=== PATIENT | male | born 1990 | race Caucasian/White ===

== ENCOUNTER 2020-02-10 03:20 | Emergency (ER) | payer SELFPAY ==
[2020-02-10] VITALS (7 sets, daily range): BP systolic 103–130; BP diastolic 63–82; PULSE 84–110; RESP 16–18; TEMP 36.6; O2SAT 96–99
--- NOTE | 2020-02-10 03:45 | CTR_ITS ---
PROCEDURE INFORMATION: Exam: CT Abdomen And Pelvis Without Contrast Exam date and time: 02/10/2020 3:47 AM Age: 29 years old Clinical indication: Abdominal pain; Flank; Right; Prior surgery; Surgery date: 6+ months; Surgery type: Appy; Additional info: Flank/abdominal pain TECHNIQUE: Imaging protocol: Computed tomography of the abdomen and pelvis without contrast. Radiation optimization: All CT scans at this facility use at least one of these dose optimization techniques: automated exposure control; mA and/or kV adjustment per patient size (includes targeted exams where dose is matched to clinical indication); or iterative reconstruction. COMPARISON: No relevant prior studies available. RADIATION DOSE METRICS: Total DLP (mGy-cm): 643.29 FINDINGS: Liver: Normal. No mass. Gallbladder and bile ducts: Normal. No calcified stones. No ductal dilation. Pancreas: Normal. No ductal dilation. Spleen: Normal. No splenomegaly. Adrenal glands: Normal. No mass. Kidneys and ureters: Right renal enlargement with moderate right pelvicaliectasis proximal ureterectasis with obstructing calculus at the proximal right ureter measuring 0.6 by 0.57 by 0.75 cm. Stomach and bowel: Large volume colonic fecal debris. Surgical changes medial to the cecum. Likely prior appendectomy with nonvisualization of the appendix. Rather diffuse fluid-filled small bowel. Appendix: See Stomach and bowel finding. Intraperitoneal space: Unremarkable. No free air. No significant fluid collection. Vasculature: Unremarkable. No abdominal aortic aneurysm. Lymph nodes: Unremarkable. No enlarged lymph nodes. Urinary bladder: Unremarkable as visualized. Reproductive: Unremarkable as visualized. Bones/joints: Unremarkable. No acute fracture. Soft tissues: Unremarkable. CT/CT kidney stone [id number] IMPRESSION: 1. Proximal right ureteral obstructing calculus. 2. Reactive small bowel ileus. Radiation Dose CTDIVOL = (mGy): DLP = 643.29 (mGy-cm)
[2020-02-10] MEDS: morphine 4 mg/mL SDV 1 mL IVP (03:51)
[2020-02-10] MEDS: ondansetron 2 mg/ML SDV 2 mL 4 MG IVP (03:51)
[2020-02-10] MEDS: sodium chloride 0.9% 1,000 ML 999 ML IV (03:52)
[2020-02-10 03:56] LABS: Basophils % 0.5 %; Eosinophils # 0.2 10^3/uL (0.0-0.8); Eosinophils % 2.5 %; Hematocrit 42.9 % (42.0-52.0); Hemoglobin 14.5 g/dL (11.7-16.6); Lymphocytes # 3.2 10^3/uL (0.8-4.8); Lymphocytes % 38.6 %; Mean Corpuscular HGB Conc 33.8 g/dL (30.0-36.0); Mean Corpuscular Hemoglobin 32.4 pg (28.0-34.0); Mean Platelet Volume 9.5 fL (7.4-10.4); Monocytes # 0.8 10^3/uL (0.2-0.9); Neutrophils # 4.02 10^3/uL (1.8-7.7); Neutrophils % 48.3 %; Nucleated Red Blood Cells % 0 %; Platelet Count 321 10^3/cmm (130-400); Red Blood Count 4.47 10^6/uL (4.1-5.3); Red Cell Distribution Width 11.7 % (12.1-15.1); White Blood Count 8.3 10^3/uL (4.0-10.0)
--- NOTE | 2020-02-10 04:07 | W.ED.ABDPA2 ---
HPI - Abdominal Pain General: Chief Complaint: Abdominal Pain Stated Complaint: ab pain, thinks he has kidney stones Time Seen by Provider: 02/10/20 03:26 Source: patient Mode of arrival: ambulatory Limitations: no limitations History of Present Illness: HPI narrative: Zain is a 29-year-old male who comes in with complaint of right flank pain. States his pain is similar 20s had kidney stones in the past. Patient denies any blood in his urine or difficulty urinating. Denies any testicular pain or swelling. He states this pain feels exactly like when he has had kidney stones in the past. He denies any fever, chills, nausea or vomiting. He denies any other complaints or concerns. He is unaware of anything that makes his symptoms better or worse. He otherwise has no complaints. Associated Symptoms: Denies chills, coffee ground emesis, constipation, GI cramping, diarrhea, dysuria, fever(s), heartburn, hematochezia, hematuria, hematemesis, melena, nausea, syncope and vomiting Review of Systems Const: Denies: fever(s), chills, body aches, fatigue, malaise or diaphoresis Eyes: Denies: change in vision, blurry vision, photophobia, eye discomfort, eye discharge, eye redness or yellow eyes ENMT: Denies: throat pain, odynophagia, hoarseness, swelling of lips/tongue, ear or mastoid pain, ear discharge, change in hearing or nasal discharge Card: Denies: chest pain, palpitations, irregular heart rhythm, edema, lightheadedness, syncope, pre-syncope, dyspnea on exertion or orthopnea Resp: Denies: dyspnea, productive cough, non-productive cough, wheezing, hemoptysis or chest congestion GI: Denies: abdominal pain, nausea, vomiting, hematemesis, coffee ground emesis, heartburn, diarrhea, constipation, GI cramping, hematochezia or melena : Reports: flank pain; Denies: dysuria, urinary frequency, urinary urgency or hematuria Musc: Denies: neck pain, back pain, extremity pain, extremity swelling, joint pain, joint swelling, joint redness, joint warmth or joint stiffness Skin/Breast: Denies: rash, pruritus, erythema, skin pain or skin tenderness Neuro: Denies: headache(s), numbness in extremities, weakness in extremities, sensory changes, lack of coordination, difficulty walking, dizziness, vertigo, confusion, Slurred speech present or seizure-like activity Santino/Lymph: Denies: easy bruising, easy bleeding, petechiae, purpura or enlarged lymph nodes All/Imm: Denies: urticaria, throat swelling, tongue swelling, facial swelling or acute wheezing PFSH ED PFSH: Medical History Kidney stones Surgical History History of appendectomy Physical Exam Const: COMMON NORMALS: no acute distress, patient oriented x3, no limitations and alert GENERAL APPEARANCE: cooperative HENMT: COMMON NORMALS: normocephalic, atraumatic, external ears normal, EAC's normal and Normal external nose present HEAD & SCALP: normal to inspection, normocephalic and atraumatic FACE & SINUS: normal facial exam and face symmetric NOSE: Normal external nose present and Normal nares present EXTERNAL EAR: Yes external ears normal EXTERNAL AUDITORY CANAL: EAC's normal MOUTH: Normal oral and palatal mucosa present, lip normal and tongue normal Eye: COMMON NORMALS: Equal, round and reactive pupils present and conjunctivae normal GENERAL EYE: appearance normal, both eyes and all related structures ALIGNMENT: Yes alignment normal PERIORBITAL: periorbital findings normal EYELID: eyelids normal CONJUNCTIVA: Yes conjunctivae normal SCLERA: sclerae normal PUPIL: Yes Equal, round and reactive pupils present Neck/C-Spine: COMMON NORMALS: full ROM, no lymphadenopathy, supple, no meningeal signs and no JVD GENERAL: Yes normal visual inspection and Yes trachea midline Chest: COMMONS NORMALS: normal inspection of the chest and normal palpation of entire chest wall Resp: COMMON NORMALS: normal respiratory effort, No retractions, No use of accessory muscles and clear to auscultation bilaterally EFFORT & INSPECTION: Yes able to speak in complete sentences and Yes symmetric chest movement AUSCULTATION: clear to auscultation bilaterally, no crackles, no rales, no rhonchi and no wheezes Cardio: COMMON NORMALS: no JVD, regular rate, regular rhythm, S1 normal heart sound present and S2 normal heart sound present RATE: regular rate RHYTHM: regular rhythm HEART SOUNDS: S1 normal heart sound present, S2 normal heart sound present, no click, no gallops, no murmurs and no rubs GI: COMMON NORMALS: Soft to palpation and No hepatosplenomegaly present PALPATION: Yes Soft to palpation, No Tenderness to palpation present (GI), No Guarding due to palpation present (GI), No Rigid due to palpation, Yes No hepatosplenomegaly present, No Hernia present, No Palpable mass present and No Pulsatile mass present : COMMON NORMALS: Yes no CVA tenderness BLADDER/KIDNEY EXAM: Yes no CVA tenderness Back/Pelvis: COMMON NORMALS: no CVA tenderness, thoracic and lumbar spine normal to inspection, no thoracic nor lumbar tenderness and thoraco-lumbar ROM normal Extremity: COMMON NORMALS: normal to inspection, full ROM, capillary refill normal, no joint enlargement, no clubbing, cyanosis or edema and no calf tenderness Neuro: COMMON NORMALS: patient oriented x3, CN's II-XII intact bilaterally, moves all extremities, no focal motor deficits and no sensory deficits noted SENSORIUM/ORIENTATION: Yes alert MENINGEAL SIGNS: Yes no meningeal signs SPEECH: speech normal Psych: COMMON NORMALS: mental status grossly normal, Normal thought process present, cooperative, normal affect, speech normal and activity/motor behavior normal SPEECH: Yes normal speech THOUGHT PROCESS: Normal thought process present Skin: COMMON NORMALS: no rashes or lesions noted, turgor normal, no jaundice, no petechiae and no mottling GENERAL SKIN EXAM: no rashes or lesions noted and turgor normal Course Vital Signs: Vital signs: Vital Signs Temperature 97.8 F 02/10/20 03:21 Pulse Rate 94 02/10/20 05:09 Respiratory Rate 18 02/10/20 05:22 Blood Pressure 110/64 02/10/20 05:09 Pulse Oximetry 97 02/10/20 05:22 MDM - Abdominal Pain MDM Narrative: Medical decision making narrative: Mr. Hudson is a nice 29-year-old male who comes in with right flank pain. He has history of kidney stones and has another kidney stone. Stone is quite large but despite my insistence and request the patient refuses to be admitted. He wants to go home. I will send him home with pain medicine, Flomax, nausea medicine and a prophylactic antibiotic. He understands he needs to follow-up with Dr. Peter as soon as possible. He otherwise denies any complaints or concerns and wants to be discharged. Patient has been warned but is also been welcomed to return. Differential Diagnosis: Differential diagnosis abdominal pain: Likely abdominal pain, calculus of kidney, constipation, endometriosis, gastroenteritis, pancreatitis and small bowel obstruction Lab Data: Attestation: I reviewed the patient's lab results. Labs: Lab Results 02/10/20 02/10/20 02/10/20 Range/Units 03:30 03:30 04:50 WBC 8.3 (4.0-10.0) 10^3/ uL RBC 4.47 (4.1-5.3) 10^6/u L Hgb 14.5 (11.7-16.6) g/dL Hct 42.9 (42.0-52.0) % MCV 96.0 H (80-94) fL MCH 32.4 (28.0-34.0) pg MCHC 33.8 (30.0-36.0) g/dL RDW 11.7 L (12.1-15.1) % Plt Count 321 (130-400) 10^3/c mm MPV 9.5 (7.4-10.4) fL Neut % (Auto) 48.3 % Lymph % (Auto) 38.6 % [place] % (Auto) 10.0 % Eos % (Auto) 2.5 % Baso % (Auto) 0.5 % Neut # (Auto) 4.02 (1.8-7.7) 10^3/u L Lymph # (Auto) 3.2 (0.8-4.8) 10^3/u L [place] # (Auto) 0.8 (0.2-0.9) 10^3/u L Eos # (Auto) 0.2 (0.0-0.8) 10^3/u L Baso # (Auto) 0.0 (0.0-0.1) 10^3/u L Nucleated RBC % (a uto) 0 % Nucleated RBCs # 0.0 /100WBC Sodium 138 (136-145) mmol/L Potassium 4.2 (3.5-5.1) mmol/L Chloride 101 (98-107) mmol/L Carbon Dioxide 26 (22-29) mmol/L Anion Gap 15.2 (5-19) BUN 14 (6-20) mg/dL Creatinine 1.1 (0.7-1.2) mg/dL GFR Calculation 78.6 L (90-130) mL/min Glucose 111 (65-115) mg/dL Calculated Osmolal ity 287 (285-295) mOsm/k g Calcium 9.7 (8.5-10.5) mg/dL Total Bilirubin 0.2 (0.15-1.2) mg/dL AST 21 (0-40) U/L ALT 26 (0-41) U/L Alkaline Phosphata se 96 (40-130) IU/L Total Protein 7.3 (6.6-8.7) g/dL Albumin 4.1 (3.5-5.2) g/dL Globulin 3.2 (1.3-4.6) g/dL Lipase 18 (13-60) U/L Urine Color Yellow (Yellow) Urine Appearance Cloudy (CLEAR) Urine pH 8.0 H (5-7) Ur Specific Gravit y 1.015 (1.005-1.030) Urine Protein Neg (Negative) Urine Glucose (UA) Norm (Normal) Urine Ketones Negative (Negative) Urine Blood 3+ H (Negative) Urine Nitrate Negative (Negative) Urine Bilirubin Neg (Negative) Urine Urobilinogen Norm (Negative) mg/dL Ur Leukocyte Cassia ase Negative (Negative) Urine RBC 25-40 H (0-2) /hpf Urine WBC 0-4 H (0-5) /hpf Ur Squamous Epith Cells None (0-5) /hpf Amorphous Sediment Amorphous urates /hpf Urine Bacteria 2+ H (NONE) /hpf Urine Mucus Trace /hpf Imaging Data ^: CT Abd/Pel: Radiologist's impression: [address] [address] [address] Scan Report Signed Patient: Zain Hudson Unit #: [id number] : 1990 Age/Sex: 29 / M ADM Date: 02/10/20 Loc: ER Room/Bed: Attending Dr: Ordering Provider/Ordering MD: Yazmin Meeks DO Date of Service: 02/10/20 Procedure(s): CT kidney stone 91843 Accession Number(s): [id number] Report Number: [id number] PROCEDURE INFORMATION: Exam: CT Abdomen And Pelvis Without Contrast Exam date and time: 02/10/2020 3:47 AM Age: 29 years old Clinical indication: Abdominal pain; Flank; Right; Prior surgery; Surgery date: 6+ months; Surgery type: Appy; Additional info: Flank/abdominal pain TECHNIQUE: Imaging protocol: Computed tomography of the abdomen and pelvis without contrast. Radiation optimization: All CT scans at this facility use at least one of these dose optimization techniques: automated exposure control; mA and/or kV adjustment per patient size (includes targeted exams where dose is matched to clinical indication); or iterative reconstruction. COMPARISON: No relevant prior studies available. RADIATION DOSE METRICS: Total DLP (mGy-cm): 643.29 FINDINGS: Liver: Normal. No mass. Gallbladder and bile ducts: Normal. No calcified stones. No ductal dilation. Pancreas: Normal. No ductal dilation. Spleen: Normal. No splenomegaly. Adrenal glands: Normal. No mass. Kidneys and ureters: Right renal enlargement with moderate right pelvicaliectasis proximal ureterectasis with obstructing calculus at the proximal right ureter measuring 0.6 by 0.57 by 0.75 cm. Stomach and bowel: Large volume colonic fecal debris. Surgical changes medial to the cecum. Likely prior appendectomy with nonvisualization of the appendix. Rather diffuse fluid-filled small bowel. Appendix: See Stomach and bowel finding. Intraperitoneal space: Unremarkable. No free air. No significant fluid collection. Vasculature: Unremarkable. No abdominal aortic aneurysm. Lymph nodes: Unremarkable. No enlarged lymph nodes. Urinary bladder: Unremarkable as visualized. Reproductive: Unremarkable as visualized. Bones/joints: Unremarkable. No acute fracture. Soft tissues: Unremarkable. CT/CT kidney stone [id number] IMPRESSION: 1. Proximal right ureteral obstructing calculus. 2. Reactive small bowel ileus. Radiation Dose CTDIVOL = (mGy): DLP = 643.29 (mGy-cm) Dictated By: Barbra Helm DO Signed By: Barbra Helm DO Signed Date/Time: 02/10/20444 DD/ 3 Discharge Plan Discharge Patient Disposition: Home Clinical Impression: Kidney stones Condition: Stable Prescriptions: [place] 5-325 mg tablet 1 tab PO Q6H PRN (Reason: pain) 5 Days Qty: 20 RF: 0 Zofran 4 mg tablet 4 mg PO Q6H PRN (Reason: nausea and vomiting) Qty: 20 RF: 0 cefdinir 300 mg capsule 300 mg PO Q12H 10 Days Qty: 20 RF: 0 Flomax 0.4 mg capsule 0.4 mg PO DAILY Qty: 30 RF: 0 Discharge Orders: Discharge ED (Routine); Ordered 02/10/20 Ordered By: Yazmin Meeks Referrals: Debbie Palacios MD [Primary Care Provider] - Massimo Peter MD [Physician] - 1-3 days Discharge Diet: Advance as tolerated Discharge Activity: Increase activity as tolerated Patient Instructions: Renal Colic (ED) Activity Restrictions/Additional Instructions: Please return to the ER immediately for any of the signs or symptoms listed on your discharge instruction sheets, worsening/changing of your symptoms, you are not getting better as quickly as expected, or for ANY other cause or concerns. Strain your urine and take the medicines as I have prescribed them. Return to the ER for fever, uncontrolled pain, vomiting, or for any other cause for concern. You have been offered further evaluation and care here but have declined. If your symptoms worsen or you simply change your mind please return to the ER immediately for recheck. Be certain to call for an appointment to be seen by Dr. Peter soon as possible. Stand Alone Forms: Work/School Release Coding Level of Care Code ED Bin Tripper Operator for Caitlin Fwd Exam Comprehensive
[2020-02-10 04:25] LABS: Alanine Aminotransferase 26 U/L (0-41); Albumin Level 4.1 g/dL (3.5-5.2); Alkaline Phosphatase 96 IU/L (40-130); Anion Gap 15.2 (5-19); Aspartate Amino Transferase 21 U/L (0-40); Blood Urea Nitrogen 14 mg/dL (6-20); Calcium 9.7 mg/dL (8.5-10.5); Carbon Dioxide 26 mmol/L (22-29); Chloride 101 mmol/L (98-107); Globulin 3.2 g/dL (1.3-4.6); Glomerular Filtration Rate 78.6 mL/min (90-130); Glucose 111 mg/dL (65-115); Lipase 18 U/L (13-60); Osmolality Calculated 287 mOsm/kg (285-295); Potassium 4.2 mmol/L (3.5-5.1); Sodium 138 mmol/L (136-145); Total Bilirubin 0.2 mg/dL (0.15-1.2); Total Protein 7.3 g/dL (6.6-8.7)
[2020-02-10 05:21] LABS: Add Urine Microscopic? YES; Bilirubin Urine Neg (Negative); Blood Urine 3+ (Negative); Glucose Urine UA Norm (Normal); Ketones Urine Negative (Negative); Leukocyte Esterase Urine Negative (Negative); Nitrate Urine Negative (Negative); Protein Urine Neg (Negative); Specific Gravity, Urine 1.015 (1.005-1.030); Urine Appearance Cloudy (CLEAR); Urine Color Yellow (Yellow); Urobilinogen Urine Norm (Negative)
[2020-02-10 05:22] LABS: Add Urine Culture? Yes; Amorphous Sediment Urine AMORPHOUS URATES /hpf; Bacteria Urine 2+ /hpf; Mucus Urine TRACE /hpf; RBC Urine 25-40 /hpf (0-2); WBC Urine 0-4 /hpf (0-5)
[2020-02-10] MEDS: HYDROmorphone 1 mg/mL INJ 1 mL 0.5 MG IVP (05:22)
== END 2020-02-10 05:52 | disposition home or self-care (01) ==
PROVIDERS: Emergency Provider Emergency Medicine; PCP Family Medicine
DX: N20.0 Calculus of kidney (principal); Z87.442 Personal history of urinary calculi
CPT/HCPCS: 12345; 74176; 80053; 81001; 83690; 85025; 87086; 96361; 96374; 96375; 99283; J1170; J2270; J2405; J7030

== ENCOUNTER 2020-02-13 18:04 | Emergency (ER) | payer SELFPAY ==
[2020-02-13] VITALS (8 sets, daily range): BP systolic 104–132; BP diastolic 53–80; PULSE 64–102; RESP 15–28; TEMP 36.7; O2SAT 94–99; BMI 22.9
--- NOTE | 2020-02-13 18:24 | ED_ITS ---
HPI - Male Genitourinary General: Chief complaint: Urogenital-Male Stated complaint: suspects kidney stone Time Seen by Provider: 02/13/20 18:22 Source: patient Mode of arrival: ambulatory Limitations: no limitations History of Present Illness: HPI Narrative: Zain is a nice 29-year-old male who returns with right-sided flank pain due to a kidney stone. Patient was seen and evaluated by me on February 09 and diagnosed with a large stone at that time. Please see that encounter for details of that visit. He had moderate right hydroureteral nephrosis at that time but he would not stay despite my trying to convince him that he would not do well trying to pass this at home on his own. Zain is in a great deal of pain at this time. relates that he was fine when he left at his previous visit and has been fine with his pain until tonight. His pain returned abruptly this evening. There is been no reported fevers, vomiting or ill type symptoms until this evening. Patient denies any other complaints or concerns. Patient also states that he did not fill any of the medications prescribed to him previously. Associated symptoms: Deny dysuria, hematuria, nausea or vomiting Review of Systems Const: Denies: fever(s), chills, body aches, fatigue, malaise or diaphoresis Eyes: Denies: change in vision, blurry vision, photophobia, eye discomfort, eye discharge, eye redness or yellow eyes ENMT: Denies: throat pain, odynophagia, hoarseness, swelling of lips/tongue, ear or mastoid pain, ear discharge, change in hearing or nasal discharge Card: Denies: chest pain, palpitations, irregular heart rhythm, edema, lightheadedness, syncope, pre-syncope, dyspnea on exertion or orthopnea Resp: Denies: dyspnea, productive cough, non-productive cough, wheezing, hemoptysis or chest congestion GI: Denies: abdominal pain, nausea, vomiting, hematemesis, coffee ground emesis, heartburn, diarrhea, constipation, GI cramping, hematochezia or melena : Reports: flank pain; Denies: dysuria, urinary frequency, urinary urgency or hematuria Musc: Denies: neck pain, back pain, extremity pain, extremity swelling, joint pain, joint swelling, joint redness, joint warmth or joint stiffness Skin/Breast: Denies: rash, pruritus, erythema, skin pain or skin tenderness Neuro: Denies: headache(s), numbness in extremities, weakness in extremities, sensory changes, lack of coordination, difficulty walking, dizziness, vertigo, confusion, Slurred speech present or seizure-like activity Santino/Lymph: Denies: easy bruising, easy bleeding, petechiae, purpura or enlarged lymph nodes All/Imm: Denies: urticaria, throat swelling, tongue swelling, facial swelling or acute wheezing PFSH ED PFSH: Medical History Kidney stones Surgical History History of appendectomy Physical Exam Const: COMMON NORMALS: no acute distress, patient oriented x3, no limitations and alert GENERAL APPEARANCE: cooperative HENMT: COMMON NORMALS: normocephalic, atraumatic, external ears normal, EAC's normal and Normal external nose present HEAD & SCALP: normal to inspection, normocephalic and atraumatic FACE & SINUS: normal facial exam and face symme tric NOSE: Normal external nose present and Normal nares present EXTERNAL EAR: Yes external ears normal EXTERNAL AUDITORY CANAL: EAC's normal MOUTH: Normal oral and palatal mucosa present, lip normal and tongue normal Eye: COMMON NORMALS: Equal, round and reactive pupils present and conjunctivae normal GENERAL EYE: appearance normal, both eyes and all related structures ALIGNMENT: Yes alignment normal PERIORBITAL: periorbital findings normal EYELID: eyelids normal CONJUNCTIVA: Yes conjunctivae normal SCLERA: sclerae normal PUPIL: Yes Equal, round and reactive pupils present Neck/C-Spine: COMMON NORMALS: full ROM, no lymphadenopathy, supple, no meningeal signs and no JVD GENERAL: Yes normal visual inspection and Yes trachea midline Chest: COMMONS NORMALS: normal inspection of the chest and normal palpation of entire chest wall Resp: COMMON NORMALS: normal respiratory effort, No retractions, No use of acc essory muscles and clear to auscultation bilaterally EFFORT & INSPECTION: Yes able to speak in complete sentences and Yes symmetric chest movement AUSCULTATION: clear to auscultation bilaterally, no crackles, no rales, no rhonchi and no wheezes Cardio: COMMON NORMALS: no JVD, regular rate, regular rhythm, S1 normal heart sound present and S2 normal heart sound present RATE: regular rate RHYTHM: regular rhythm HEART SOUNDS: S1 normal heart sound present, S2 normal heart sound present, no click, no gallops, no murmurs and no rubs GI: COMMON NORMALS: Soft to palpation and No hepatosplenomegaly present PALPATION: Yes Soft to palpation, No Tenderness to palpation present (GI), No Guarding due to palpation present (GI), No Rigid due to palpation, Yes No hepa tosplenomegaly present, No Hernia present, No Palpable mass present and No Pulsatile mass present : BLADDER/KIDNEY EXAM: Yes CVA tenderness on the right Back/Pelvis: COMMON NORMALS: thoracic and lumbar spine normal to inspection, no thoracic nor lumbar tenderness and thoraco-lumbar ROM normal Extremity: COMMON NORMALS: normal to inspection, full ROM, capillary refill normal, no joint enlargement, no clubbing, cyanosis or edema and no calf tenderness Neuro: COMMON NORMALS: patient oriented x3, CN's II-XII intact bilaterally, moves all extremities, no focal motor deficits and no sensory deficits noted SENSORIUM/ORIENTATION: Yes alert MENINGEAL SIGNS: Yes no meningeal signs SPEECH: speech normal Psych: COMMON NORMALS: mental status grossly normal, Normal thought process present, cooperative, normal affect, speech normal and activity/motor behavior normal SPEECH: Yes normal speech THOUGHT PROCESS: Normal thought process present Skin: COMMON NORMALS: no rashes or lesions noted, turgor normal, no jaundice, no petechiae and no mottling GENERAL SKIN EXAM: no rashes or lesions noted and turgor normal Course Vital Signs: Vital signs: Vital Signs Temperature 98.0 F 02/13/20 18:12 Pulse Rate 80 02/14/20 00:22 Respiratory Rate 17 02/14/20 00:22 Blood Pressure 112/66 02/14/20 00:22 Pulse Oximetry 98 02/14/20 00:22 MDM - Male MDM Narrative: Medical decision making narrative: The case was reviewed in its entirety with Dr. Peter. The patient never filled his antibiotics or any of his medicines after his last ER visit. He has truly not failed outpatient therapy as he is been noncompliant. Dr. Peter thinks the patient can likely start these medicines and he can see the patient on Sunday. I reviewed this plan with the patient and he is in agreement. Patient's pain is controlled at this time. He understands instructions are given to him. Further care be dictated with Dr. Peter. Patient did understand he can return here at any time if his symptoms change or worsen. Patient had no fever or sign of infection here, he was not vomiting so he should be more than able to tolerate his symptoms at home. I did review with him and his and they state they do have the money to purchase his medications. He will be discharged with medications for pain and nausea to help get him through tonight and he was given his first dose of Flomax and antibiotic here. Lab Data: Attestation: I reviewed the patient's lab results. Labs: Lab Results 02/13/20 02/13/20 02/13/20 Range/Units 18:40 18:40 18:55 WBC 13.0 H (4.0-10.0) 10^3/ uL RBC 4.50 (4.1-5.3) 10^6/u L Hgb 14.3 (11.7-16.6) g/dL Hct 42.4 (42.0-52.0) % MCV 94.2 H (80-94) fL MCH 31.8 (28.0-34.0) pg MCHC 33.7 (30.0-36.0) g/dL RDW 11.6 L (12.1-15.1) % Plt Count 305 (130-400) 10^3/c mm MPV 9.9 (7.4-10.4) fL Neut % (Auto) 62.6 % Lymph % (Auto) 27.0 % [place] % (Auto) 8.3 % Eos % (Auto) 1.5 % Baso % (Auto) 0.4 % Neut # (Auto) 8.11 H (1.8-7.7) 10^3/u L Lymph # (Auto) 3.5 (0.8-4.8) 10^3/u L [place] # (Auto) 1.1 H (0.2-0.9) 10^3/u L Eos # (Auto) 0.2 (0.0-0.8) 10^3/u L Baso # (Auto) 0.1 (0.0-0.1) 10^3/u L Nucleated RBC % (a uto) 0 % Nucleated RBCs # 0.0 /100WBC Sodium 136 (136-145) mmol/L Potassium 3.8 (3.5-5.1) mmol/L Chloride 105 (98-107) mmol/L Carbon Dioxide 22 (22-29) mmol/L Anion Gap 12.8 (5-19) BUN 16 (6-20) mg/dL Creatinine 1.2 (0.7-1.2) mg/dL GFR Calculation 71.1 L (90-130) mL/min Glucose 111 (65-115) mg/dL Calculated Osmolal ity 284 L (285-295) mOsm/k g Lactic Acid 1.2 (0.5-2.2) mmol/L Calcium 9.5 (8.5-10.5) mg/dL Total Bilirubin 0.2 (0.15-1.2) mg/dL AST 21 (0-40) U/L ALT 22 (0-41) U/L Alkaline Phosphata se 93 (40-130) IU/L Total Protein 7.1 (6.6-8.7) g/dL Albumin 3.8 (3.5-5.2) g/dL Globulin 3.3 (1.3-4.6) g/dL Lipase 20 (13-60) U/L Urine Color (Yellow) Urine Appearance (CLEAR) Urine pH (5-7) Ur Specific Gravit y (1.005-1.030) Urine Protein (Negative) Urine Glucose (UA) (Normal) Urine Ketones (Negative) Urine Blood (Negative) Urine Nitrate (Negative) Urine Bilirubin (Negative) Urine Urobilinogen (Negative) mg/dL Ur Leukocyte Cassia ase (Negative) Urine RBC (0-2) /hpf Urine WBC (0-5) /hpf Ur Squamous Epith Cells (0-5) /hpf Amorphous Sediment /hpf Urine Bacteria (NONE) /hpf 02/13/20 Range/Units 22:04 WBC (4.0-10.0) 10^3/ uL RBC (4.1-5.3) 10^6/u L Hgb (11.7-16.6) g/dL Hct (42.0-52.0) % MCV (80-94) fL MCH (28.0-34.0) pg MCHC (30.0-36.0) g/dL RDW (12.1-15.1) % Plt Count (130-400) 10^3/c mm MPV (7.4-10.4) fL Neut % (Auto) % Lymph % (Auto) % [place] % (Auto) % Eos % (Auto) % Baso % (Auto) % Neut # (Auto) (1.8-7.7) 10^3/u L Lymph # (Auto) (0.8-4.8) 10^3/u L [place] # (Auto) (0.2-0.9) 10^3/u L Eos # (Auto) (0.0-0.8) 10^3/u L Baso # (Auto) (0.0-0.1) 10^3/u L Nucleated RBC % (a uto) % Nucleated RBCs # /100WBC Sodium (136-145) mmol/L Potassium (3.5-5.1) mmol/L Chloride (98-107) mmol/L Carbon Dioxide (22-29) mmol/L Anion Gap (5-19) BUN (6-20) mg/dL Creatinine (0.7-1.2) mg/dL GFR Calculation (90-130) mL/min Glucose (65-115) mg/dL Calculated Osmolal ity (285-295) mOsm/k g Lactic Acid (0.5-2.2) mmol/L Calcium (8.5-10.5) mg/dL Total Bilirubin (0.15-1.2) mg/dL AST (0-40) U/L ALT (0-41) U/L Alkaline Phosphata se (40-130) IU/L Total Protein (6.6-8.7) g/dL Albumin (3.5-5.2) g/dL Globulin (1.3-4.6) g/dL Lipase (13-60) U/L Urine Color Yellow (Yellow) Urine Appearance Sl cloudy A (CLEAR) Urine pH 7 (5-7) Ur Specific Gravit y 1.010 (1.005-1.030) Urine Protein Neg (Negative) Urine Glucose (UA) Norm (Normal) Urine Ketones Negative (Negative) Urine Blood Neg (Negative) Urine Nitrate Negative (Negative) Urine Bilirubin Neg (Negative) Urine Urobilinogen Norm (Negative) mg/dL Ur Leukocyte Cassia ase Negative (Negative) Urine RBC 0-4 H (0-2) /hpf Urine WBC 0-4 H (0-5) /hpf Ur Squamous Epith Cells 0-4 H (0-5) /hpf Amorphous Sediment 3+ /hpf Urine Bacteria Trace (NONE) /hpf Discharge Plan Discharge Patient Disposition: Home Clinical Impression: Kidney stones Condition: Stable Prescriptions: No Action hydrocodone-acetaminophen [Ronceverte] 5-325 mg tablet 1 tab PO Q6H PRN (Reason: pain) 5 Days Qty: 20 RF: 0 ondansetron HCl [Zofran] 4 mg tablet 4 mg PO Q6H PRN (Reason: nausea and vomiting) Qty: 20 RF: 0 cefdinir 300 mg capsule 300 mg PO Q12H 10 Days Qty: 20 RF: 0 tamsulosin [Flomax] 0.4 mg capsule 0.4 mg PO DAILY Qty: 30 RF: 0 Discharge Orders: Discharge ED (Routine); Ordered 02/13/20 Ordered By: Yazmin Meeks Referrals: Debbie Palacios MD [Primary Care Provider] - Massimo Peter MD [Physician] - 1-3 days (Do not eat or drink anything but clear fluids after Sunday night at midnight and call for an appointment to be seen by Dr. Peter first thing Sunday.) Discharge Diet: Advance as tolerated Discharge Activity: Increase activity as tolerated Patient Instructions: Renal Colic (ED) Activity Restrictions/Additional Instructions: Please return to the ER immediately for any of the signs or symptoms listed on your discharge instruction sheets, worsening/changing of your symptoms, you are not getting better as quickly as expected, or for ANY other cause or concerns. Be certain to call for an appointment to be seen by Dr. Peter on Sunday and do not eat or drink anything other than clear fluids after midnight Sunday night. Return to the ER for uncontrolled pain, fever, vomiting, or for any other cause for concern. Coding Level of Care Code ED Space [employer] Operations Craftsman for Chg Fwd Exam Comprehensive
[2020-02-13] MEDS: ondansetron 2 mg/ML SDV 2 mL 4 MG IVP (18:32)
[2020-02-13] MEDS: HYDROmorphone 1 mg/mL INJ 1 mL IVP ×2 (18:32→18:55)
[2020-02-13] MEDS: sodium chloride 0.9% 1,000 ML 100 ML IV ×2 (18:41→21:19)
[2020-02-13 18:47] LABS: Basophils # 0.1 10^3/uL (0.0-0.1); Basophils % 0.4 %; Eosinophils # 0.2 10^3/uL (0.0-0.8); Eosinophils % 1.5 %; Hematocrit 42.4 % (42.0-52.0); Hemoglobin 14.3 g/dL (11.7-16.6); Lymphocytes # 3.5 10^3/uL (0.8-4.8); Mean Corpuscular HGB Conc 33.7 g/dL (30.0-36.0); Mean Corpuscular Hemoglobin 31.8 pg (28.0-34.0); Mean Corpuscular Volume 94.2 fL (80-94); Mean Platelet Volume 9.9 fL (7.4-10.4); Monocytes # 1.1 10^3/uL (0.2-0.9); Monocytes % 8.3 %; Neutrophils # 8.11 10^3/uL (1.8-7.7); Neutrophils % 62.6 %; Nucleated Red Blood Cells % 0 %; Platelet Count 305 10^3/cmm (130-400); Red Cell Distribution Width 11.6 % (12.1-15.1)
[2020-02-13 19:09] LABS: Alanine Aminotransferase 22 U/L (0-41); Albumin Level 3.8 g/dL (3.5-5.2); Alkaline Phosphatase 93 IU/L (40-130); Anion Gap 12.8 (5-19); Aspartate Amino Transferase 21 U/L (0-40); Blood Urea Nitrogen 16 mg/dL (6-20); Calcium 9.5 mg/dL (8.5-10.5); Carbon Dioxide 22 mmol/L (22-29); Chloride 105 mmol/L (98-107); Globulin 3.3 g/dL (1.3-4.6); Glomerular Filtration Rate 71.1 mL/min (90-130); Glucose 111 mg/dL (65-115); Lipase 20 U/L (13-60); Osmolality Calculated 284 mOsm/kg (285-295); Potassium 3.8 mmol/L (3.5-5.1); Sodium 136 mmol/L (136-145); Total Bilirubin 0.2 mg/dL (0.15-1.2); Total Protein 7.1 g/dL (6.6-8.7)
[2020-02-13 19:13] LABS: Lactic Sepsis W/Reflex 1.2 mmol/L (0.5-2.2)
[2020-02-13] MEDS: sodium chloride 0.9% 1,000 ML 999 ML IV (19:35)
--- NOTE | 2020-02-13 21:24 | PC.NURSE ---
2100 offered to cath pt after second liter to get urine, pt refused at the time. pt has attempted to urinate x3 with no success, erp notified.
[2020-02-13 23:01] LABS: Bilirubin Urine Neg (Negative); Blood Urine Neg (Negative); Glucose Urine UA Norm (Normal); Ketones Urine Negative (Negative); Leukocyte Esterase Urine Negative (Negative); Nitrate Urine Negative (Negative); Protein Urine Neg (Negative); Urine Color Yellow (Yellow); Urobilinogen Urine Norm (Negative); pH Urine 7 (5-7)
[2020-02-13 23:02] LABS: Add Urine Culture? No; Amorphous Sediment Urine 3+ /hpf; Bacteria Urine TRACE /hpf; RBC Urine 0-4 /hpf (0-2); Squamous Epithelial Cell Urine 0-4 /hpf (0-5); WBC Urine 0-4 /hpf (0-5)
--- NOTE | 2020-02-13 23:15 | XRR_ITS ---
PROCEDURE INFORMATION: Exam: XR Abdomen, 1 View Exam date and time: 02/13/2020 11:18 PM Age: 29 years old Clinical indication: Condition or disease; Kidney or ureter condition; Calculus (stone) in ureter; Prior surgery; Surgery date: 6+ months; Surgery type: Appendectomy; Patient HX: HX of large kidney stone. Had CT here 02/09. C/O severe pain again tonight. Right flank TECHNIQUE: Imaging protocol: XR of the abdomen. Views: Frontal supine view of the abdomen. 1 View. COMPARISON: CT kidney stone [id number] 02/10/2020 3:53 AM FINDINGS: Gastrointestinal tract: Normal. No bowel dilation. Bones/joints: There is a 3 x 5 mm calcifications seen in the right flank at the L3-L4 level compatible with a right ureteral calculus. A calcification was seen on a CT examination dated 02/10/2020 showing little change in position. XR/XR KUB portable [id number] IMPRESSION: Right ureteral calculus essentially unchanged in position compared with a CT examination dated 02/10/2020.
[2020-02-14] MEDS: tamsulosin 0.4 mg Capsule PO (00:14)
[2020-02-14] MEDS: cefdinir 300 MG CAPSULE PO (00:14)
[2020-02-14] MEDS: ondansetron 4 MG Tablet 8 MG PO (00:20)
[2020-02-14] MEDS: HYDROcodone-acetaminophen 5-325 mg Tablet 2 TAB PO (00:20)
[2020-02-14 00:22] VITALS: BP 112/66; PULSE 80; RESP 17; O2SAT 98
[2020-02-16 07:05] LABS: Coronavirus Lab Test PTC Negative
--- NOTE | 2020-02-16 08:45 | PC.NURSE ---
pt notified of negative covid results
== END 2020-02-14 00:22 | disposition home or self-care (01) ==
PROVIDERS: Emergency Provider Emergency Medicine; PCP Family Medicine
DX: N20.0 Calculus of kidney (principal); Z87.442 Personal history of urinary calculi
CPT/HCPCS: 12345; 74018; 80053; 81001; 83605; 83690; 85025; 87635; 96361; 96374; 96375; 96376; 99283; J0131; J1170; J2405; J7030; Q0162

== ENCOUNTER 2020-02-16 09:44 | Outpatient (CLI) | payer SELFPAY ==
--- NOTE | 2020-02-16 09:58 | XR_ITS ---
WS: [id number] KUB, 02/16/2020 Clinical Data: STONE Comparison: KUB, 02/13/2020. Findings: 0.5 cm calcification on the right at the level of the L3-L4 disc is noted. No other abnormal calcific ations are seen. There is fecal material throughout the colon which obscures detail especially on the right kidney. XR/XR KUB [id number] Impression: No change in probable right mid ureteral calculus.
== END 2020-02-16 09:45 | disposition home or self-care (01) ==
PROVIDERS: PCP Family Medicine; Visit Provider Urology
DX: N20.9 Urinary calculus, unspecified (principal)
CPT/HCPCS: 74018

== ENCOUNTER 2020-02-16 14:39 | Day surgery (SDC) | payer SELFPAY ==
[2020-02-16] VITALS (11 sets, daily range): BP systolic 86–136; BP diastolic 54–80; PULSE 63–88; RESP 12–18; TEMP 36.4–36.6; O2SAT 95–100; BMI 22.2
--- NOTE | 2020-02-16 15:19 | P.ANESASSM_ITS ---
Pre-Anesthetic Assessment Pre-Anesthetic Assessment: Height/Weight: Height 1.78 m Weight 70.307 kg Preop Diagnosis: Right ureteral stone Proposed Procedure: Operation Date: 02/16/20 16:10 Proposed Procedures p Cystoscopy [id number] n20.1(Not Applicable) - Massimo Peter MD s ESWL(Right) - Massimo Peter MD Familial anesthetic complications: None Was Beta Kelsie taken within 24 hours: N/A Last intake: Intake Last Liquid Date 02/16/20 Last Liquid Time 08:00 Last Solid Date 02/15/20 Last Solid Time 18:00 Social: Social History: Tobacco and No alcohol Exam: Pre-Anes Outpt Exam: alert, oriented x 3, clear to auscultation bilaterally and regular rate & rhythm Airway: Cervical ROM: WNL MP: 3 Dentition: Chipped and Other (missing) CV/HEM: CV/HEM: Palp Anesthetic Plan: ASA status: 1 Anesthesia: General Risk of > 500 ml blood loss (7ml/kg in children): No PFSH Anesthesia PFSH: Medical History Kidney stones Right ureteral stone Surgical History History of appendectomy Social History Smoking and tobacco status: current every day smoker Alcohol intake: never Marital status: Current occupational status: employed 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
[2020-02-16] MEDS: sodium chloride 0.9% 1,000 ML 30 ML IV (15:31)
--- NOTE | 2020-02-16 15:51 | PM.OP ---
Operative Report Date of procedure: February 16, 2020 Pre-op Diagnosis: Right ureteral stone Post-op diagnosis: same Procedure Done: 1. Extracorporeal shockwave lithotripsy, right ureteral calculus (no stent) Pathology: none sent Surgeon: Brittani Railroad Dining Car Steward/Stewardess: Lithotripsy Sales Expert Home Theater: [place] Anesthesia: General Estimated blood loss: None Urine output: Not measured Complications: None Findings: Stone easily identified with fluoroscopy. Condition: stable Disposition: PACU Brief History: Zain is a very pleasant 29-year-old white male with a history of urolithiasis who has been seen twice in the emergency department at [facility] in the last week. Complained of right renal colicky symptoms and CT scan demonstrated a 8+ millimeter stone in the right mid ureter with obstructive changes. Was prescribed pain medication, antiemetics, and Flomax but failed to fill the prescription and presented back 2 days later with increasing symptoms again. No evidence of infection. Was provided a couple of pills at discharge on Sunday night the and scheduled for reevaluation in my office this morning at which point he decided to proceed with ESWL +/- stent. Admitted to outpatient surgery this afternoon for the above. Procedure: After urgent evaluation examination and obtaining of informed consent he was taken to the operating suite on 02/16/2020 where general anesthesia was administered without difficulty after appropriate timeout was performed, SCDs confirmed to be functioning, preoperative antibiotics administered, beta-rome protocol confirmed. Positioned on the Dornier unit such that the stone was located at the focal point utilizing biplanar fluoroscopy. Shock head was positioned posteriorly. Therapy was begun at an intensity of 1 and advanced an intensity of 4. Rate was initiated at 70 and advanced to 90 after good change was identified. Position changes were dictated by real-time fluoroscopic imaging. Total shocks administered: 2500 Results: Excellent change. Stent: None Tolerated the procedure well without complications and was awakened in the operating room and returned to the recovery in stable condition. PLANS: 1. Anticipate discharge from outpatient surgery 2. Follow-up in 2 weeks with KUB 3. Strain all voids
--- NOTE | 2020-02-16 15:53 | W.PM.OPSUD ---
Surgery/Procedure H&P Update DATE OF PROCEDURE: February 16, 2020 DATE H&P PERFORMED: 02/16/20 H&P UPDATE INFORMATION: I have reviewed H&P completed within last 30 days, I have examined patient prior to procedure, No changes to prior documentation and H&P is in [facility] EMR on date indicated CHANGES TO PREVIOUS DOCUMENTATION: Still symptomatic. No stone passage. Proceed with ESWL with or without stent. PREOP DIAGNOSIS: Right ureteral stone PLANNED PROCEDURE: Operation Date: 02/16/20 16:10 Proposed Procedures p Cystoscopy [id number] n20.1(Not Applicable) - Massimo Peter MD s ESWL(Right) - Massimo Peter MD
[2020-02-16] MEDS: HYDROcodone-acetaminophen 5-325 mg Tablet 1 TAB PO (18:23)
--- NOTE | 2020-02-16 18:30 | ANE.PACU2 ---
Inpatient post-anesthesia follow up: Airway intact: Yes Vital signs: Temperature 97.7 F Pulse Rate 63 Respiratory Rate 18 Blood Pressure 107/71 Pulse Oximetry 99 Oxygen Delivery Me thod Room Air Oxygen Flow Rate Fraction of Inspir ed Oxygen Hydration adequate: Yes Nausea and vomiting: No Pain level: 2 Mental status: Baseline
== END 2020-02-16 18:35 | disposition home or self-care (01) ==
PROVIDERS: PCP Family Medicine; Visit Provider Urology
PROC: (CPT 50590; 2020-02-16 16:10)
DX: N20.1 Calculus of ureter (principal); F17.210 Nicotine dependence, cigarettes, uncomplicated
CPT/HCPCS: 50590; 12345; 96374; J0690; J1100; J2405; J2704; J3010; J3490; J7030

== ENCOUNTER 2021-10-20 00:35 | Emergency (ER) | payer SELFPAY ==
--- NOTE | 2021-10-20 00:37 | XRR_ITS ---
PROCEDURE INFORMATION: Exam: XR Chest Exam date and time: 10/20/2021 12:56 AM Age: 31 years old Clinical indication: Shortness of breath; Chest pressure; Patient HX: C/O chest pain with SOB. ; Additional info: Cp TECHNIQUE: Imaging protocol: Radiologic exam of the chest. Views: 1 view. COMPARISON: CR Chest 2 views* [id number] 06/07/2015 12:09 AM FINDINGS: Lungs: Unremarkable. No consolidation. Pleural spaces: Unremarkable. No pleural effusion. No pneumothorax. Heart/Mediastinum: Unremarkable. No cardiomegaly. Bones/joints: No acute findings. XR/XR chest 1V portable [id number] IMPRESSION: No acute findings.
[2021-10-20 00:39] VITALS: BP 123/78; PULSE 95; RESP 18; TEMP 36.5; O2SAT 100; BMI 20.9
--- NOTE | 2021-10-20 00:48 | ECG_ITS ---
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 Measurements Intervals [place] Rate: 82 P: 60 DC: 115 QRS: 76 QRSD: 94 T: 63 QT: 353 QTc: 415 Interpretive Statements SINUS RHYTHM WITH SHORT DC INTERVAL MINIMAL VOLTAGE CRITERIA FOR LVH, CONSIDER NORMAL VARIANT [MEETS CRITERIA IN ONE OF: R(aVL), S(V1), R(V5), R(V5/V6)+S(V1)] ST ELEVATION, PROBABLY EARLY REPOLARIZATION [ST ELEVATION WITH NORMALLY INFLECTED T-WAVE] NONSPECIFIC T-WAVE ABNORMALITY Compared to ECG 06/06/2015 23:40:22 Early repolarization now present T-wave abnormality now present Sinus arrhythmia no longer present ST (T wave) deviation still present Electronically Signed On 10-20-2021 22:53:36 CDT by Mitra Duran M.D. [email or web address]
[2021-10-20 01:09] LABS: Basophils # 0.1 10^3/uL (0.0-0.1); Basophils % 0.3 %; Eosinophils # 0.2 10^3/uL (0.0-0.8); Eosinophils % 1.1 %; Hematocrit 44.8 % (42.0-52.0); Hemoglobin 15.3 g/dL (11.7-16.6); Lymphocytes % 20.5 %; Mean Corpuscular HGB Conc 34.2 g/dL (30.0-36.0); Mean Corpuscular Hemoglobin 33.2 pg (28.0-34.0); Mean Corpuscular Volume 97.2 fl (80-94); Mean Platelet Volume 9.9 fL (7.4-10.4); Monocytes # 1.1 10^3/uL (0.2-0.9); Monocytes % 7.1 %; Neutrophils # 10.46 10^3/uL (1.8-7.7); Neutrophils % 70.7 %; Nucleated Red Blood Cells % 0 %; Platelet Count 270 10^3/cmm (130-400); Red Blood Count 4.61 10^6/uL (4.1-5.3); Red Cell Distribution Width 12.2 % (12.1-15.1); White Blood Count 14.8 10^3/uL (4.0-10.0)
[2021-10-20 01:11] VITALS: BP 127/78; PULSE 79; RESP 19; O2SAT 95
--- NOTE | 2021-10-20 01:16 | W.ED.CHESTPA ---
HPI - Chest Pain General: Chief Complaint: Chest Pain Stated Complaint: Chest Pains Time Seen by Provider: 10/20/21 00:52 Source: patient Mode of arrival: ambulatory Limitations: no limitations History of Present Illness: 31-year-old male states he has been having chest pains for years now. He states the pains been sharp in nature he states that it is worsened over the last 3 weeks he has had some shortness of breath. Denies any fever denies any vomiting diarrhea denies any worsening proving factors states pain currently is a 6 out of 10. Associated symptoms: Deny abdominal pain, dyspnea, fever(s), nausea or vomiting Review of Systems Const: Denies: fever(s), chills, body aches or change in appetite Eyes: Denies: blurry vision or eye discomfort ENMT: Denies: throat pain or dental pain Card: Reports: chest pain Resp: Denies: dyspnea GI: Denies: abdominal pain, nausea, vomiting or diarrhea : Denies: dysuria Musc: Denies: neck pain or back pain Skin/Breast: Denies: rash Neuro: Denies: headache(s) Psych: Denies: depression Santino/Lymph: Denies: easy bruising All/Imm: Denies: urticaria PFSH ED PFSH: Medical History Kidney stones Right ureteral stone Surgical History History of appendectomy Social History Smoking and tobacco status: current every day smoker Alcohol intake: never Marital status: Current occupational status: employed Current occupation: [employer] HOME [employer] History of recent travel: No Physical Exam Const: COMMON NORMALS: no acute distress, patient oriented x3 and healthy appearing HENMT: COMMON NORMALS: normocephalic and atraumatic HEAD & SCALP: normocephalic and atraumatic Eye: COMMON NORMALS: Equal, round and reactive pupils present and EOMs intact bilaterally PUPIL: Yes Equal, round and reactive pupils present Neck/C-Spine: COMMON NORMALS: full ROM and supple Chest: COMMONS NORMALS: normal inspection of the chest and normal palpation of entire chest wall Resp: COMMON NORMALS: normal respiratory effort, No retractions, No use of accessory muscles and clear to auscultation bilaterally AUSCULTATION: clear to auscultation bilaterally Cardio: COMMON NORMALS: regular rate, regular rhythm and No murmurs present (Cardio) RATE: regular rate RHYTHM: regular rhythm GI: COMMON NORMALS: Normal to inspection, nondistended, normoactive bowel sounds present, Soft to palpation, non-tender and no masses PALPATION: Yes Soft to palpation Extremity: COMMON NORMALS: normal to inspection and full ROM Neuro: COMMON NORMALS: patient oriented x3, moves all extremities and no focal motor deficits Psych: COMMON NORMALS: mental status grossly normal, Normal thought process present and cooperative THOUGHT PROCESS: Normal thought process present Skin: COMMON NORMALS: no rashes or lesions noted and no wounds GENERAL SKIN EXAM: no rashes or lesions noted Course Vital Signs: Vital signs: Vital Signs Temperature 97.7 F 10/20/21 00:39 Pulse Rate 79 10/20/21 01:11 Respiratory Rate 25 H 10/20/21 01:31 Blood Pressure 127/78 10/20/21 01:11 Pulse Oximetry 96 10/20/21 01:31 Oxygen Delivery Me thod 10/20/21 01:11 MDM - Chest Pain Medical Decision Making Patient presents for chest pain is atypical in nature D-dimer troponin here negative he is well-appearing here he is stable for discharge she is to follow-up with PCP and return if worsening he understands agrees to plan. Lab Data : 10/20/21 01:02 10/20/21 01:02 Laboratory Results WBC 14.8 10^3/uL (4.0-10.0) H 10/20/21 01:02 RBC 4.61 10^6/uL (4.1-5.3) 10/20/21 01:02 Hgb 15.3 g/dL (11.7-16.6) 10/20/21 01:02 Hct 44.8 % (42.0-52.0) 10/20/21 01:02 MCV 97.2 fl (80-94) H 10/20/21 01:02 MCH 33.2 pg (28.0-34.0) 10/20/21 01:02 MCHC 34.2 g/dL (30.0-36.0) 10/20/21 01:02 RDW 12.2 % (12.1-15.1) 10/20/21 01:02 Plt Count 270 10^3/cmm (130-400) 10/20/21 01:02 MPV 9.9 fL (7.4-10.4) 10/20/21 01:02 Neut % (Auto) 70.7 % 10/20/21 01:02 Lymph % (Auto) 20.5 % 10/20/21 01:02 [place]ayer % (Auto) 7.1 % 10/20/21 01:02 Eos % (Auto) 1.1 % 10/20/21 01:02 Baso % (Auto) 0.3 % 10/20/21 01:02 Neut # (Auto) 10.46 10^3/uL (1.8-7.7) H 10/20/21 01:02 Lymph # (Auto) 3.0 10^3/uL (0.8-4.8) 10/20/21 01:02 Thayer # (Auto) 1.1 10^3/uL (0.2-0.9) H 10/20/21 01:02 Eos # (Auto) 0.2 10^3/uL (0.0-0.8) 10/20/21 01:02 Baso # (Auto) 0.1 10^3/uL (0.0-0.1) 10/20/21 01:02 Nucleated RBC % (auto) 0 % 10/20/21 01:02 Nucleated RBCs # 0.0 /100WBC 10/20/21 01:02 D-Dimer 0.38 ug/mIFEU (0-0.59) 10/20/21 01:02 Sodium 140 mmol/L (136-145) 10/20/21 01:02 Potassium 4.1 mmol/L (3.5-5.1) 10/20/21 01:02 Chloride 101 mmol/L (98-107) 10/20/21 01:02 Carbon Dioxide 26 mmol/L (22-29) 10/20/21 01:02 Anion Gap 17.1 (5-19) 10/20/21 01:02 BUN 14 mg/dL (6-20) 10/20/21 01:02 Creatinine 1.0 mg/dL (0.7-1.2) 10/20/21 01:02 GFR Calculation 86.6 mL/min (90-130) L 10/20/21 01:02 Glucose 80 mg/dL (65-115) 10/20/21 01:02 Calculated Osmolality 289 mOsm/kg (285-295) 10/20/21 01:02 Calcium 10.0 mg/dL (8.5-10.5) 10/20/21 01:02 Total Bilirubin 0.6 mg/dL (0.15-1.2) 10/20/21 01:02 AST 19 U/L (0-40) 10/20/21 01:02 ALT 19 U/L (0-41) 10/20/21 01:02 Alkaline Phosphatase 92 U/L (40-130) 10/20/21 01:02 Troponin T Baseline 8 ng/L (0-15) 10/20/21 01:02 Total Protein 7.6 g/dL (6.6-8.7) 10/20/21 01:02 Albumin 4.5 g/dL (3.5-5.2) 10/20/21 01:02 Globulin 3.1 g/dL (1.3-4.6) 10/20/21 01:02 EKG Data EKG 1: I personally reviewed and interpreted this EKG as follows: EKG interpretation date: 10/20/21 EKG interpretation time: 00:48 Interpretation: nsr hr [address] or t wave abnormalities qrs 94 qtc 392 Discharge Plan Discharge Patient Disposition: Home Clinical Impression: Chest pain Condition: Stable Prescriptions: New Naprosyn 500 mg tablet 500 mg PO BID PRN (Reason: pain) Qty: 20 0RF No Action ondansetron HCl [Zofran] 4 mg tablet 4 mg PO Q6H PRN (Reason: nausea and vomiting) Qty: 20 0RF tamsulosin [Flomax] 0.4 mg capsule 0.4 mg PO DAILY Qty: 30 0RF [place] 5-325 mg tablet 1 tab PO Q8H PRN (Reason: pain) Qty: 15 0RF Discharge Orders: Discharge ED (Routine); Ordered 10/20/21 Ordered By: Niko Pete Referrals: Debbie Palacios MD [Primary Care Provider] - 1-3 days Discharge Diet: Advance as tolerated Discharge Activity: Resume usual activity Patient Instructions: Chest Pain (ED) Coding Level of Care Code ED Hematology Technologist for Chg Fwd Exam Comprehensive
[2021-10-20 01:31] VITALS: RESP 25; O2SAT 96
[2021-10-20] MEDS: morphine 4 mg/mL SDV 1 mL IVP (01:31)
[2021-10-20] MEDS: ondansetron 2 mg/ML SDV 2 mL 4 MG IVP (01:31)
[2021-10-20 01:36] LABS: Troponin(5th) Baseline 8 ng/L (0-15)
[2021-10-20 01:39] LABS: Alanine Aminotransferase 19 U/L (0-41); Albumin Level 4.5 g/dL (3.5-5.2); Alkaline Phosphatase 92 U/L (40-130); Anion Gap 17.1 (5-19); Aspartate Amino Transferase 19 U/L (0-40); Blood Urea Nitrogen 14 mg/dL (6-20); Carbon Dioxide 26 mmol/L (22-29); Chloride 101 mmol/L (98-107); Globulin 3.1 g/dL (1.3-4.6); Glomerular Filtration Rate 86.6 mL/min (90-130); Glucose 80 mg/dL (65-115); Osmolality Calculated 289 mOsm/kg (285-295); Potassium 4.1 mmol/L (3.5-5.1); Sodium 140 mmol/L (136-145); Total Bilirubin 0.6 mg/dL (0.15-1.2); Total Protein 7.6 g/dL (6.6-8.7)
[2021-10-20 02:01] LABS: D Dimer 0.38 ug/mIFEU (0-0.59)
[2021-10-20 02:28] VITALS: BP 116/74; PULSE 90; RESP 21; O2SAT 100
== END 2021-10-20 02:28 | disposition home or self-care (01) ==
PROVIDERS: Emergency Provider Emergency Medicine; PCP Family Medicine
DX: R07.9 Chest pain, unspecified (principal); F17.210 Nicotine dependence, cigarettes, uncomplicated
CPT/HCPCS: 71045; 80053; 84484; 85025; 85378; 93005; 96374; 96375; 99285; J2270; J2405